=== PATIENT | male | born 1940 | race Caucasian/White ===

== ENCOUNTER 2017-01-08 16:38 | Emergency (ER) | payer MEDICARE ==
[~2017-01-08] VITALS: Ht 172.7 cm; Wt 80.3 kg
[~2017-01-08 16:38] MED LIST: COUMADIN2.5 MG PO; COUMADIN5 MG PO; FERROUS SULFAT325 M1 PO; GLUCOPHAGE1000 MG PO; INVOKANA100 MG PO; JANUVIA50 MG PO; LEVEMIR100 UNIT/1 SUBCUT; LIPITOR20 MG PO; LISINOPRIL-HCT1 EAC2 PO; NORCO 325-5 MG1 TAB PO; PRINIVIL5 MG PO; XANAX0.5 MG PO
== END 2017-01-08 18:00 | disposition short-term general hospital (02) ==
LOC: ER 16:38
DX: I26.99 Other pulmonary embolism without acute cor pulmonale (principal); I10 Essential (primary) hypertension; E78.5 Hyperlipidemia, unspecified; Z79.4 Long term (current) use of insulin; Z79.84 Long term (current) use of oral hypoglycemic drugs; Z79.01 Long term (current) use of anticoagulants; Z79.899 Other long term (current) drug therapy